=== PATIENT | female | born 1990 | race Asian ===

== ENCOUNTER 2016-09-07 04:10 | Emergency (ER) | payer BC, OTHER ==
[~2016-09-07] VITALS: Ht 165.1 cm; Wt 65.0 kg
[~2016-09-07 04:10] MED LIST: DOCU-30 PO; FERR325T20 PO; IBUP-1222 PO
[2016-09-07] MEDS ORDERED: DIPH,PERTUSS(ACELL),TET VAC/PF 0.5 ML IM-VACC ONE ×2 (05:00→05:02)
[2016-09-07] MEDS ORDERED: OXYcodone/APAP 5/325MG TABLET PO ONE (05:00)
[2016-09-07] MEDS ORDERED: OXYcodone/APAP 5/325MG TABLET ONE (05:02)
[2016-09-07 06:00] VITALS: BP 114/79
== END 2016-09-07 06:29 | disposition home or self-care (01) ==
LOC: ED 05:30
DX: S06.0X9A Concussion with loss of consciousness of unspecified duration, initial encounter (principal); S02.2XXA Fracture of nasal bones, initial encounter for closed fracture; S01.21XA Laceration without foreign body of nose, initial encounter; W22.8XXA Striking against or struck by other objects, initial encounter; Y93.89 Activity, other specified; Y92.89 Other specified places as the place of occurrence of the external cause; Y99.8 Other external cause status
CPT/HCPCS: 70450; 70486; 90471; 90715

== ENCOUNTER 2016-09-15 15:11 | Day surgery (SDC) | payer BC ==
[~2016-09-15] VITALS: Ht 167.6 cm; Wt 78.0 kg
[2016-09-15] MEDS ORDERED: LACTATED RINGERS 1,000 ML IV SCH ×2 (15:25→15:31)
[2016-09-15 15:45] VITALS: BP 125/79
[2016-09-15] MEDS ORDERED: NO MEDICATIONS (15:57)
[2016-09-15 16:02] LABS: HCG UR OBC PASS
[2016-09-15] MEDS ORDERED: OXYMETAZOLINE NASAL SPRAY 0.05%, 15ML ONE (16:31)
[2016-09-15] MEDS ORDERED: COCAINE TOPICAL SOLN 4%, 4ML ONE (16:32)
[2016-09-15] MEDS ORDERED: BACITRACIN OINT 500U/GM, 15 GM ONE (16:32)
[2016-09-15] MEDS ORDERED: LIDOCAINE 1%-EPI 1:100K, 50ML ONE (16:32)
[2016-09-15] MEDS ORDERED: FENTANYL PF 100 MCG/2ML ONE ×3 (16:43→17:52)
[2016-09-15] MEDS ORDERED: MIDAZOLAM 1 MG/ML, 2ML ONE (16:43)
[2016-09-15] MEDS ORDERED: CEFAZOLIN 1,000 MG ONE (16:45)
[2016-09-15] MEDS ORDERED: DEXAMETHASONE 4 MG/ML, 5ML ONE (16:45)
[2016-09-15] MEDS ORDERED: PROPOFOL 10 MG/ML, 20ML ONE (16:45)
[2016-09-15] MEDS ORDERED: ONDANSETRON 2MG/ML, 2ML ONE (16:45)
[2016-09-15] MEDS ORDERED: ONDANSETRON 2MG/ML, 2ML IVPush PRN (17:30)
[2016-09-15] MEDS ORDERED: MEPERIDINE/PF 25MG/0.5ML IVPush PRN (17:30)
[2016-09-15] MEDS ORDERED: LABETALOL 5MG/ML, 20ML IV PRN (17:30)
[2016-09-15] MEDS ORDERED: hydrALAzine 20 MG/ML, 1ML IV PRN (17:30)
[2016-09-15] MEDS ORDERED: FENTANYL PF 100 MCG/2ML IV PRN (17:30)
[2016-09-15] MEDS ORDERED: OXYcodone 5 MG/5 ML ORAL.SOL UDC PO PRN (17:30)
[2016-09-15] MEDS ORDERED: ACETAMINOPHEN 325 MG TABLET PO PRN (17:30)
[2016-09-15] MEDS ORDERED: HYDROmorphone 1 MG/ML, 1ML IV PRN (17:30)
[2016-09-15] MEDS ORDERED: MEPERIDINE/PF 25MG/0.5ML ONE (17:53)
[2016-09-15] MEDS ORDERED: OXYcodone 5 MG/5 ML ORAL.SOL UDC ONE (18:04)
== END 2016-09-15 20:00 | disposition home or self-care (01) ==
LOC: OR 15:11
PROVIDERS: ATTEND Otolaryngology Facial Plastic Surgery
DX: S02.2XXA Fracture of nasal bones, initial encounter for closed fracture (principal); Y09 Assault by unspecified means; Y93.89 Activity, other specified; Y92.9 Unspecified place or not applicable; J34.2 Deviated nasal septum; Z72.89 Other problems related to lifestyle
CPT/HCPCS: 21320; 21337; 81025; J0690; J1100; J2175; J2250; J2405; J2704; J3010; J7120

== ENCOUNTER 2017-01-26 07:19 | Day surgery (SDC) | payer BC ==
[~2017-01-26 07:19] MED LIST changes: +DOCU-131 PO; -DOCU-30 PO; +FERR325T18 PO; -FERR325T20 PO; +NO MEDICATIONS
[2017-01-26] MEDS ORDERED: COCAINE TOPICAL SOLN 4%, 4ML ONE (07:33)
[2017-01-26] MEDS ORDERED: LIDOCAINE/PF 1%, 30ML ONE (07:33)
[2017-01-26] MEDS ORDERED: EPINEPHRINE 1 MG/ML, 1ML ONE (07:33)
[2017-01-26] MEDS ORDERED: MUPIROCIN OINT 2%, 22GM ONE (07:33)
[2017-01-26] MEDS ORDERED: OXYMETAZOLINE NASAL SPRAY 0.05%, 15ML ONE (07:33)
[2017-01-26] MEDS ORDERED: KETAMINE 10 MG/ML, 20ML ONE (07:38)
[2017-01-26] MEDS ORDERED: MIDAZOLAM 1 MG/ML, 2ML ONE (07:38)
[2017-01-26] MEDS ORDERED: FENTANYL PF 100 MCG/2ML ONE (07:39)
[2017-01-26 08:18] VITALS: BP 120/81
[2017-01-26] MEDS ORDERED: LACTATED RINGERS 1,000 ML IV SCH (08:18)
[2017-01-26] MEDS ORDERED: PLEASE ENTER HEIGHT AND WEIGHT MC SCH (08:30)
[2017-01-26 09:05] LABS: HCG UR OBC PASS
[2017-01-26] MEDS ORDERED: DEXAMETHASONE 4 MG/ML, 1ML ONE (09:45)
[2017-01-26] MEDS ORDERED: ROCURONIUM 10 MG/ML ONE (09:45)
[2017-01-26] MEDS ORDERED: SUCCINYLCHOLINE 20 MG/ML, 10ML ONE (09:45)
[2017-01-26] MEDS ORDERED: ONDANSETRON 2MG/ML, 2ML ONE (09:45)
[2017-01-26] MEDS ORDERED: LIDOCAINE 2% 100MG/5ML SYRINGE ONE (09:45)
[2017-01-26] MEDS ORDERED: CEFAZOLIN 1,000 MG ONE (09:45)
[2017-01-26] MEDS ORDERED: PROPOFOL 10 MG/ML, 20ML ONE (09:45)
[2017-01-26] MEDS ORDERED: OXYcodone 5 MG/5 ML ORAL.SOL UDC PO PRN (11:00)
[2017-01-26] MEDS ORDERED: HYDROmorphone 1 MG/ML, 1ML IV PRN (11:00)
[2017-01-26] MEDS ORDERED: ACETAMINOPHEN 325 MG TABLET PO PRN (11:00)
[2017-01-26] MEDS ORDERED: PROMETHAZINE 25 MG/ML, 1ML IV PRN (11:00)
[2017-01-26] MEDS ORDERED: MEPERIDINE/PF 25MG/0.5ML IVPush PRN (11:00)
[2017-01-26] MEDS ORDERED: FENTANYL PF 100 MCG/2ML IV PRN (11:00)
[2017-01-26] MEDS ORDERED: MEPERIDINE/PF 25MG/0.5ML ONE (12:04)
[2017-01-26] MEDS ORDERED: OXYcodone 5 MG/5 ML ORAL.SOL UDC ONE (12:04)
== END 2017-01-26 13:55 | disposition home or self-care (01) ==
LOC: OUT 07:19
PROVIDERS: ATTEND Otolaryngology Facial Plastic Surgery
DX: S02.2XXA Fracture of nasal bones, initial encounter for closed fracture (principal); J34.2 Deviated nasal septum; X58.XXXA Exposure to other specified factors, initial encounter; Y93.89 Activity, other specified; Y92.89 Other specified places as the place of occurrence of the external cause; Y99.8 Other external cause status; M95.0 Acquired deformity of nose
CPT/HCPCS: 30465; 30520; 81025; J0171; J0330; J0690; J1100; J2175; J2250; J2405; J2704; J3010; J3490; J7120

== ENCOUNTER 2017-01-26 22:38 | Emergency (ER) | payer BC ==
[~2017-01-26] VITALS: Ht 167.6 cm; Wt 82.0 kg
[2017-01-26] MEDS ORDERED: ONDANSETRON 2MG/ML, 2ML IVPush ONE (23:30)
[2017-01-26] MEDS ORDERED: SODIUM CHLORIDE 0.9% 1,000ML IVBOLUS ONE (23:30)
[2017-01-26] MEDS ORDERED: KETOROLAC 30 MG/1 ML IVPush ONE (23:30)
[2017-01-26] MEDS ORDERED: SODIUM CHLORIDE FLUSH 10ML SYR IVF ONE (23:30)
[2017-01-26] MEDS ORDERED: MORPHINE SULFATE 4 MG/ML, 1ML IVPush ONE (23:30)
[2017-01-26] MEDS ORDERED: FAMOTIDINE 20 MG/2 ML IVP ONE (23:30)
[2017-01-26] MEDS ORDERED: KETOROLAC 30 MG/1 ML ONE (23:51)
[2017-01-26] MEDS ORDERED: ONDANSETRON 2MG/ML, 2ML ONE (23:51)
[2017-01-26] MEDS ORDERED: FAMOTIDINE 20 MG/2 ML ONE (23:51)
[2017-01-26] MEDS ORDERED: MORPHINE SULFATE 4 MG/ML, 1ML ONE (23:51)
[2017-01-27 01:29] VITALS: BP 112/70
== END 2017-01-27 01:35 | disposition home or self-care (01) ==
LOC: ED 23:59
DX: R11.2 Nausea with vomiting, unspecified (principal); G89.18 Other acute postprocedural pain; J34.89 Other specified disorders of nose and nasal sinuses
CPT/HCPCS: 93005; 96361; 96374; 96375; 99284; J1885; J2405; J7030; S0028